=== PATIENT | female | born 1940 | race Caucasian/White ===

== ENCOUNTER 2019-02-12 06:01 | Day surgery (SDC) | payer MEDICAID, OTHER ==
[~2019-02-12] VITALS: Ht 157.5 cm; Wt 71.0 kg
[2019-02-12] VITALS (9 sets, daily range): BP systolic 97–119; BP diastolic 53–71; PULSE 71–78; RESP 14–20; Ht 157.5 cm; Wt 71.0 kg
[~2019-02-12 06:01] MED LIST: ACETAMINOPHEN 500 MG TAB PO ONE
[2019-02-12] MEDS ORDERED: EPHEDrine 25 MG/5 ML SYG ONE ×2 (07:00→07:54)
[2019-02-12] MEDS ORDERED: SOD CHLORIDE 0.9% 1,000 ML IV SCH (07:00)
[2019-02-12] MEDS ORDERED: ASPI81TA52 PO (07:01)
[2019-02-12] MEDS ORDERED: ATOR20TA38 PO (07:01)
[2019-02-12] MEDS ORDERED: AMLO-147 PO (07:02)
[2019-02-12] MEDS ORDERED: HYDR25TA6 PO (07:02)
[2019-02-12] MEDS ORDERED: LOSA100T15 PO (07:02)
[2019-02-12] MEDS ORDERED: METO-429 PO (07:03)
--- NOTE | 2019-02-12 07:08 | PREAC ---
Date/Time of Note Date/Time of Note DATE: 02/12/19 TIME: 07:06 Anesthesia Eval and Record Evaluation Time Pre-Procedure Interview DATE: 02/12/19 TIME: 07:06 Age 78 Sex female NPO: 8 hrs Preoperative diagnosis malignant melanoma scalp Planned procedure forehead and scalp basal cell CA excisions and flap reconstruction Past Medical History Past Medical History: Includes Cardio: HTN, Dyslipidemia, [place] Surgery & Anesthesia Issues No known issue Meds Anticoagulation: No Beta Darleen within 24 hr: Yes Reported Medications Metoprolol Tartrate* (Lopressor*) 50 Mg Tab, 50 MG PO BID, #60 TAB 02/12/19 Losartan Potassium* (Losartan Potassium*) 100 Mg Tablet, 100 MG PO DAILY, TAB 02/12/19 Amlodipine Besylate* (Amlodipine Besylate*) 10 Mg Tablet, 10 MG PO DAILY, #30 TAB 02/12/19 Hydrochlorothiazide* (Hydrochlorothiazide*) 25 Mg Tab, 25 MG PO DAILY, #30 TAB 02/12/19 Aspirin (Low Dose Aspirin) 81 Mg Tablet.dr, 81 MG PO DAILY, #30 TAB 02/12/19 Atorvastatin Calcium* (Atorvastatin Calcium*) 20 Mg Tablet, 20 MG PO QHS, #30 TAB 02/12/19 Current Medications Sodium Chloride 1,000 ml @ 25 mls/hr Q24H IV Last administered on 02/12/19at 06:23; Admin Dose 25 MLS/HR; Start 02/12/19 at 07:00 Meds reviewed: Yes Allergies Coded Allergies: No Known Allergy (Unverified , 02/12/19) Allergies Reviewed: Yes Labs/Studies Labs Reviewed: Reviewed by anesthesiologist test: N/A Studies: ECG (nml, nsr), CXR (nad) Pre-procedure Exam Last vitals Vital Signs Date Temp Pulse Resp B/P (MAP) Pulse Ox O2 O2 Flow FiO2 Time Delivery Rate 02/12/19 97.3 71 18 119/71 100 Room Air 06:17 (87) Airway: Adequate mouth opening, Adequate thyromental dist Mallampati: Mallampati II Teeth: Abnormal (edentulous; dentures removed) Lung: Normal Heart: Normal ASA Physical Status ASA physical status: 3 Emergency: None Planned Anesthetic General/MAC: ETT, MAC Pre-operative Attestations Prior to commencing anesthesia and surgery, the patient was re-evaluated, there was verification of: *The patient's identity *The results of appropriate recent lab work and preoperative vital signs *The above evaluation not changing prior to induction *Anesthetic plan, risk benefits, alternative and complications discussed with patient/family; questions answered; patient/family understands, accepts and wishes to proceed. Home Help Aide used YVONNE CASTRO February 12, 2019 07:08
[2019-02-12] MEDS ORDERED: BUPIVACAINE 0.25%/EPI (SDV) 30 ML INJ ONE (07:21)
--- NOTE | 2019-02-12 07:23 | HPN ---
Date/Time of Note Date/Time of Note DATE: 02/12/19 TIME: 07:22 Interval H&P Admission Note Pt. seen H&P reviewed: Systems changes noted below according to the patient's family, the forehead lesion has been treated by her contractor general engineering, and therefore only the scalp lesion will be addressed today LINO LARA MD February 12, 2019 07:23
[2019-02-12] MEDS ORDERED: METOCLOPRAMIDE 10 MG INJ ONE (07:25)
[2019-02-12] MEDS ORDERED: CEFAZOLIN 1 GM INJ ONE (07:25)
[2019-02-12] MEDS ORDERED: PROPOFOL 20 ML ONE (07:25)
[2019-02-12] MEDS ORDERED: ONDANSETRON 4 MG INJ ONE (07:25)
[2019-02-12] MEDS ORDERED: FENTAnyl 50 MCG/ML VIAL ONE (07:25)
[2019-02-12] MEDS ORDERED: LIDOCAINE 2% (SDV) 5 ML INJ ONE (07:25)
[2019-02-12] MEDS ORDERED: ALBUTEROL 0.083% (NEB) 2.5 MG/3 ML AMP HHN PRN (07:30)
[2019-02-12] MEDS ORDERED: HYDROmorphONE 1 MG/5 ML IV SYRINGE IV PRN ×3 (07:30)
[2019-02-12] MEDS ORDERED: OXYCODONE/ACETAMINOPHEN (5/325) TAB PO PRN ×3 (07:30→08:00)
[2019-02-12] MEDS ORDERED: ONDANSETRON 4 MG INJ IV PRN ×2 (07:30→08:00)
[2019-02-12] MEDS ORDERED: LABETALOL HCL 20MG INJ IV PRN (07:30)
[2019-02-12] MEDS ORDERED: FENTAnyl 50 MCG/ML VIAL IV PRN ×2 (07:30)
[2019-02-12] MEDS ORDERED: DIPHENHYDRAMINE 50 MG INJ IV PRN (07:30)
[2019-02-12] MEDS ORDERED: morphine 2 MG INJ IV PRN ×3 (07:30→08:00)
[2019-02-12] MEDS ORDERED: MEPERIDINE 25 MG INJ IV PRN (07:30)
[2019-02-12] MEDS ORDERED: PHENYLephrine (100 MCG/ML) 10ML SYG ONE (07:55)
[2019-02-12] MEDS ORDERED: ACETAMINOPHEN 325 MG TAB PO PRN (08:00)
[2019-02-12] MEDS ORDERED: BACITRACIN/POLYMYXIN 28.35 GM OINT TOP ONE (08:10)
--- NOTE | 2019-02-12 08:26 | OPR ---
Date/Time of Note Date/Time of Note DATE: 02/12/19 TIME: 08:21 Operative Report Free Text/Dictation Plastic Surgery Operative Report Preoperative diagnosis: scalp basal cell CA Postoperative diagnosis: same Procedure: excision of scalp basal cell CA and flap reconstruction Surgeon: oren Ventura.: LOYDA tavarez Anesthesia: gen EBL: min IV fluids: per flow sheet Findings: n/a Complications: none Dispo: home Indications for procedure:78 yo F presents for excision of a skin cancer and local flap reconstruction. The risks, benefits, alternatives of performing this procedure were discussed with the patient including the risks of bleeding, infection, wound healing problems, distortion of surrounding structures, nerve damage, changes in sensation, need for revision, and the patient states that they understand these risks and would like to proceed with the procedure. All questions were answered, no guarantees were given with regards to the outcome of this procedure. Description of procedure: The patient was brought to the operating room at [facility] where general anesthesia was induced. The circumference of the lesion was marked with a marking pen. The skin was prepped with alcohol and then a total of 5cc of 0.25% marcaine with 1:200,000 epi were injected into the base of the lesion in the planned borders of the flap. Next, the patient was prepped and draped in usual sterile fashion. The 15 blade was then used to excise around the circumference of the lesion. This was sent for pathology. A short stitch was placed anterior and long stitch was placed posterior. Pathology returned negative. Size of the specimen was 1.5x1.5cm. The wound was inspected, and in order to close without tension and avoid distorting the surrounding structures, a laterally based rotation advancement flap was planned. This was marked with the marking pen. The flap was then incised with a 15 blade, and was undermined sharply with the cautery. The wound edges were undermined as well. It was then advanced into position. It sat in place without undue tension. Therefore hemostasis was achieved with electrocautery, and then the incision was closed with 3-0 vicryl suture and 3-0 chromic suture. The final size of the flap was 4 x 10cm. 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
--- NOTE | 2019-02-12 08:44 | PAC ---
Date/Time of Note Date/Time of Note DATE: 02/12/19 TIME: 08:43 Post-Anesthesia Notes Post-Anesthesia Note Last documented vital signs Vital Signs Date Temp Pulse Resp B/P Pulse Ox O2 O2 Flow FiO2 Time (MAP) Delivery Rate 02/12/19 97.3 99.3 71 77 18 16 119/71 100 100 Room 06:17 083 (87) 98/ Air face 9 56 mask 8L Activity: WNL Respiratory function: WNL Cardiovascular function: WNL Mental status: Baseline Pain reasonably controlled: Yes Hydration appropriate: Yes Nausea/Vomiting absent: Yes YVONNE CASTRO February 12, 2019 08:43
== END 2019-02-12 10:26 | disposition home or self-care (01) ==
LOC: SDS 06:01
PROVIDERS: ATTEND Surgery Plastic and Reconstructive Surgery
DX: C44.41 Basal cell carcinoma of skin of scalp and neck (principal); I10 Essential (primary) hypertension; E78.5 Hyperlipidemia, unspecified
CPT/HCPCS: 14301; 88305; 88331; J0690; J2370; J2405; J2765; J3010; Z7512; Z7610